=== PATIENT | female | born 1955 | race Caucasian/White ===

== ENCOUNTER 2019-02-17 08:21 | Day surgery (SDC) | payer BC, MEDICARE ==
[~2019-02-17] VITALS: Ht 160 cm; Wt 107.9 kg
[~2019-02-17 08:21] MED LIST: ALBUTEROL0.09 MG/A1 IH; ASPIR-LOW81 MG PO; ASPIRIN E.C. 8181 MG PO; BIAXIN 500MG T500 MG PO; CALTRATE 600 +1 TAB PO; CELEBREX 200MG200 MG PO; CHROMIUM PICOLI1 TA8 PO; CLIMARA 0.1 PATCH.W1 TD; CLIMARA. TD; COMPAZINE 110 MG/TAB PO; CYMBALTA 60MG60 MG PO; DESYREL 50MG50 MG PO; FISH OIL 1000MG1 CAP PO; FLEXERIL 1010 MG/TAB PO; GENTAMICIN180 MG/502 NS; GENTEAL MILD 1515 M1 OP; GLUCOSAMINE & C1 CA1 PO; IMODIUM 2MG CAPS2 MG PO; LIPITOR 10MG10 MG PO; LOPERAMIDE2 MG PO; LYRICA50 MG PO; MELATONIN5 M1 SL; MERIBIN5 MG PO; MULTI VITAMINS1 TAB PO; MVI; NASONEX SPRAY17 GM NS; NEXIUM 40MG40 MG PO; NEXIUM40 MG PO; OSTEO-BI-FLEX 21 TAB PO; PREVAGEN PO; PROBIOTIC-MAJOR PO; PROMETHAZINE12.5 M5 PO; PROVENTIL0.09 MG/A1 IH; QUESTRAN4 GM/9 GM PO; SAVELLA25 MG PO; SINGULAIR 110 MG/TAB PO; SYNTHROID0.05 MG/TA PO; TORADOL 10MG TA10 MG PO; TRAZODO50 MG PO; ULTRAM 50MG TAB50 MG PO; ZYRTEC 10MG10 MG PO; [UNRECOGNIZED DRUG - REMARK]; mirapex
[2019-02-17 09:00] VITALS: BP 135/73; PULSE 83; TEMP 96.7
[2019-02-17 09:46] VITALS: BP 150/84; PULSE 86
--- NOTE | 2019-02-17 09:50 | NUR ---
SEE MERGE DOCUMENTATION FOR MEDICATION ADMINISTRATION TIMES AND INTRA/POST PROCEDURE SEDATION ASSESSMENTS.
[2019-02-17] MEDS ORDERED: LIORESAL 1010 MG/TAB PO (09:54)
[2019-02-17] MEDS ORDERED: CLIMARA 0.1 PATCH.W1 TD (09:54)
[2019-02-17] MEDS ORDERED: LIDODERM 5% PATC1 EA TP (09:55)
[2019-02-17] MEDS ORDERED: PROTONIX 40MG T40 MG PO (09:56)
[2019-02-17] MEDS ORDERED: PROMETHAZINE12.5 M5 PO (09:57)
[2019-02-17] MEDS ORDERED: TORADOL 10MG TA10 MG PO (09:59)
[2019-02-17 10:40] VITALS: BP 132/67; PULSE 83; TEMP 96.7
--- NOTE | 2019-02-17 10:44 | NUR ---
REPORT TAKEN FROM KASSANDRA OCHOA FROM [employer]. 3 SUTURES WERE PLACED AND WILL BE TAKEN OUT AT PT'S FOLLOW UP APPT.
[2019-02-17 10:55] VITALS: BP 132/67; PULSE 84
[2019-02-17 11:10] VITALS: BP 135/65; PULSE 84
[2019-02-17 11:25] VITALS: BP 140/71; PULSE 80
--- NOTE | 2019-02-17 11:30 | NUR ---
Discharge instructions reviewed with pt/family. Pt/family voice understanding. Pt tolerated intake with no N/V. Pt voided with no complications. Pt ambulated around the unit with can and stand by assist. Pt was discharged via wheelchair to the care of spouse in private vehicle with discharge instructions in hand. IV was discontinued with catheter tip intact, no phlebitis or infiltration.
== END 2019-02-17 11:45 | disposition home or self-care (01) ==
LOC: COL.CAR 08:21
DX: I47.1 Supraventricular tachycardia (principal); M19.90 Unspecified osteoarthritis, unspecified site; J45.909 Unspecified asthma, uncomplicated; M79.7 Fibromyalgia; K21.9 Gastro-esophageal reflux disease without esophagitis; I10 Essential (primary) hypertension; K58.9 Irritable bowel syndrome, unspecified; G47.30 Sleep apnea, unspecified; Z85.828 Personal history of other malignant neoplasm of skin; Z90.710 Acquired absence of both cervix and uterus; Z88.8 Allergy status to other drugs, medicaments and biological substances; Z79.82 Long term (current) use of aspirin; Z88.1 Allergy status to other antibiotic agents; Z79.52 Long term (current) use of systemic steroids; Z87.891 Personal history of nicotine dependence; Z82.49 Family history of ischemic heart disease and other diseases of the circulatory system; Z82.3 Family history of stroke
CPT/HCPCS: J2250; J3010; J7040; J7050